=== PATIENT | female | born 1985 | race African-American/Black ===

== ENCOUNTER → 2016-09-17 | Outpatient (CLI) | payer OTHER ==
--- NOTE | 2016-09-17 16:54 | REP ---
ULTRASOUND RIGHT BREAST: Real-time sonographic evaluation of right breast is performed in the region of a palpable abnormality at 9 o'clock. Dense fibroglandular tissue is seen in this region. There is no cystic or solid mass is seen. IMPRESSION: ACR 2 benign. No cystic or solid mass seen in the region of 9 o'clock at the site of the reported palpable abnormality in the right breast. Dense fibroglandular tissue is noted. Clinical correlation and followup is recommended. Signed by Eloy Avila MD 09/17/2016 05:10 P
== END ==
LOC: M RAD 16:00
PROVIDERS: ATTEND Nurse Practitioner Women's Health
DX: N63 Unspecified lump in breast (principal)

== ENCOUNTER → 2017-04-26 | Outpatient (CLI) | payer OTHER | LOC: M WUC 13:50 | DX: Z11.1 Encounter for screening for respiratory tuberculosis (principal) | CPT/HCPCS: 71046 ==